=== PATIENT | male | born 1965 | race African-American/Black ===

== ENCOUNTER 2018-11-07 16:56 | Emergency (ER) | payer SELFPAY ==
[~2018-11-07] VITALS: Ht 172.7 cm; Wt 79.4 kg
[2018-11-07 17:05] VITALS: BP 116/74
--- NOTE | 2018-11-07 17:05 | NUR ---
ED Nurse Note: Patient walked into ED c/o bilateral shoulder pain that started yesterday, patient is alert and oriented x4, ambulatory with a steady gait. VSS
--- NOTE | 2018-11-07 18:19 | Emergency Room Report ---
History of Present Illness General Chief Complaint: Shoulder Injury Source: Patient Present Illness HPI 53-year-old male presents to the emergency department complaining of 7 out of 10 in severity pain to the musculatures of the bilateral shoulders radiating towards the neck with acute onset while at work, after he opened a heavy truck door. He denies appreciable trauma or fall otherwise. Patient reports progression of his symptoms and states he also feels tightness and has pain once raising his arms above a certain level. Patient states that Advil has not provided him any relief. He denies midline neck or back pain. Denies numbness tingling or loss of sensation or gross motor movements of the extremities. Denies weakness or a sudden severe headache. Allergies: Coded Allergies: IODINE (Verified Allergy, Unknown, 11/07/18) Patient History Past Medical History: see triage record Past Surgical History: none Pertinent Family History: none Reviewed Nursing Documentation: PMH: Agreed; PSxH: Agreed Nursing Documentation-PMH Past Medical History: No Stated History Review of Systems All Other Systems: negative except mentioned in HPI Physical Exam Vital Signs Date Time Temp Pulse Resp B/P (MAP) Pulse Ox O2 Delivery O2 Flow Rate FiO2 11/07/18 17:01 98.1 79 18 116/74 98 Room Air Sp02 EP Interpretation: reviewed, normal General Appearance: no apparent distress, alert, GCS 15, non-toxic Head: normocephalic, atraumatic Eyes: bilateral eye normal inspection, bilateral eye PERRL ENT: hearing grossly normal, normal voice Neck: full range of motion, no bony tend, tender lateral - bilaterally, paraspinal musculature/ trapezius muscles, FROM of Neck with pain. Respiratory: lungs clear, normal breath sounds, speaking full sentences Cardiovascular #1: regular rate, rhythm, normal capillary refill Cardiovascular #2: 2+ radial (R), 2+ radial (L) Musculoskeletal: back normal, gait/station normal, normal range of motion, tender - Tender to bilateral trapezius muscles. Neurologic: alert, oriented x3, responsive, motor strength/tone normal, sensory intact, normal gait, speech normal, grossly normal Psychiatric: judgement/insight normal Skin: normal color, no rash, warm/dry, well hydrated Medical Decision Making PA Attestation Dr. Wagner is my supervising Physician whom patient management has been discussed with. Diagnostic Impression: Primary Impression: Trapezius muscle strain Qualified Codes: S46.819A - Strain of other muscles, fascia and tendons at shoulder and upper arm level, unspecified arm, initial encounter Additional Impression: Trapezius muscle spasm ER Course 53-year-old male presents to the emergency department complaining of 7 out of 10 in severity pain to the musculatures of the bilateral shoulders radiating towards the neck with acute onset while at work, after he opened a heavy truck door. He denies appreciable trauma or fall otherwise. Patient reports progression of his symptoms and states he also feels tightness and has pain once raising his arms above a certain level. Patient states that Advil has not provided him any relief. He denies midline neck or back pain. Denies numbness tingling or loss of sensation or gross motor movements of the extremities. Denies weakness or a sudden severe headache. Ddx considered but are not limited to Fracture, dislocation, contusion, impingement, Sprain/Strain/Spasm Vital signs: are WNL, pt. is afebrile H&PE are most consistent with muscle strain and subsequent spasm of the bilateral trapezius muscles ORDERS: none required at this time. ED INTERVENTIONS: -Toradol IM -I do not identify an emergent condition at this time. With current presentation , pt. is stable for close outpatient follow up and conservative treatment. D/ w pt. to return promptly to ED with worsening or new symptoms.- Pt. verbalizes' understanding and agreement with proposed treatment plan. DISCHARGE: At this time pt. is stable for d/c to home. Will provide printed patient care instructions, and any necessary prescriptions. Care plan and follow up instructions have been discussed with the patient prior to discharge. Last Vital Signs Date Time Temp Pulse Resp B/P (MAP) Pulse Ox O2 Delivery O2 Flow Rate FiO2 11/07/18 17:01 98.1 79 18 116/74 98 Room Air Disposition: HOME, SELF-CARE Condition: Stable Scripts Ibuprofen* (MOTRIN*) 600 Mg Tablet 600 MG ORAL THREE TIMES A DAY, #30 TAB 0 Refills Prov: Melanie Pitt 11/07/18 Lidocaine (Lidoderm) 1 Each Adh..patch 1 PATCH TOPIC DAILY, #30 PATCH 0 Refills Patch(es) may remain in place for up to 12 hours in any 24-hour period. Prov: Melanie Pitt 11/07/18 Methocarbamol* (ROBAXIN-750*) 750 Mg Tablet 750 MG PO QID, #28 TAB 0 Refills Prov: Melanie Pitt 11/07/18 Patient Instructions: Muscle Strain, Gilg-ys-Vvir Additional Instructions: Take medications as directed. Follow up with a Primary Care Provider in 3-5 days, even if your symptoms have resolved. --Please review list of primary care clinics, if you do not already have a primary care provider Return sooner to ED if new symptoms occur, or current symptoms become worse. Do not drink alcohol, drive, or operate heavy machinery while taking Robaxin ( Muscle Relaxers) as this may cause drowsiness. - Please note that this Emergency Department Report was dictated using [employer])copy reader technology software, occasionally this can lead to erroneous entry secondary to interpretation by the dictation equipment. Melanie Pitt Nov 07, 2018 18:19
[2018-11-07] MEDS ORDERED: LIDODERM700 M1 TOPIC (18:21)
[2018-11-07] MEDS ORDERED: IBUPROFEN600 MG ORAL (18:21)
[2018-11-07] MEDS ORDERED: ROBAXIN-750750 MG PO (18:21)
[2018-11-07] MEDS: Ketorolac 30mg Inj IM ONE (18:23)
[2018-11-07 18:45] VITALS: BP 120/75
--- NOTE | 2018-11-07 18:45 | NUR ---
ED Nurse Note: A/Ox4. Pt is cleared by LIZZY Navarro. DC instruction and prescriptions given, pt verbalized understanding. IV/ID wristband removed. All belongings taken by pt. Denies pain at this time. Pt ambulated out of ER with steady gait.
== END 2018-11-07 18:45 | disposition home or self-care (01) ==
LOC: EMR 17:20
DX: S46.812A Strain of other muscles, fascia and tendons at shoulder and upper arm level, left arm, initial encounter (principal); S46.811A Strain of other muscles, fascia and tendons at shoulder and upper arm level, right arm, initial encounter; X50.9XXA Other and unspecified overexertion or strenuous movements or postures, initial encounter; Y92.89 Other specified places as the place of occurrence of the external cause; Y99.0 Civilian activity done for income or pay
CPT/HCPCS: 96372; 99283; J1885